=== PATIENT | female | born 1940 | race Caucasian/White ===

== ENCOUNTER 2018-02-18 07:30 | Emergency (ER) | payer MEDICARE ==
[~2018-02-18] VITALS: Ht 170.2 cm; Wt 79.4 kg
[~2018-02-18 07:30] MED LIST: ALBU90OI6 INH; ASCO500 PO; AZIT250 PO; CEFP200 PO; CELE200 PO; CHLO25B PO; CITA20 PO; CYAN500 PO; FERSU220EL PO; IBUP600 PO; ILEVRO1.7 ML OP; LISI5 PO; LOVA40; MAGOXI400 PO; Mobic15 MG PO; TIOT18 INH
[2018-02-18] MEDS ORDERED: Zofran Odt4 MG SL (08:05)
[2018-02-18] MEDS ORDERED: Norco 5-325 Ta1 EACH PO (08:05)
[2018-02-18] MEDS ORDERED: Prednisone20 MG PO (08:05)
[2018-02-18] MEDS ORDERED: Klor-Con M1010 MEQ (08:07)
[2018-02-18] MEDS ORDERED: TRAM50 ×2 (08:07→08:11)
[2018-02-18] MEDS ORDERED: Prednisolone Ace5 ML (08:08)
[2018-02-18] MEDS ORDERED: BUME2 PO (08:08)
[2018-02-18] MEDS ORDERED: CITA20 PO (08:08)
[2018-02-18] MEDS ORDERED: FERSU90EL PO (08:09)
[2018-02-18] MEDS ORDERED: LISI5 PO (08:10)
[2018-02-18] MEDS ORDERED: POTCHL10ER PO (08:10)
[2018-02-18] MEDS ORDERED: TIOT18 (08:11)
[2018-02-18] MEDS ORDERED: LOVA40 PO (08:11)
== END 2018-02-18 08:54 | disposition home or self-care (01) ==
LOC: ER 07:30
DX: M19.042 Primary osteoarthritis, left hand (principal); M19.041 Primary osteoarthritis, right hand; M54.5 Low back pain; Z88.8 Allergy status to other drugs, medicaments and biological substances; J44.9 Chronic obstructive pulmonary disease, unspecified; Z87.891 Personal history of nicotine dependence
CPT/HCPCS: 81000; 96372; 99282; J1100; J2550; J3010

== ENCOUNTER 2021-01-19 06:06 | Day surgery (SDC) | payer MEDICARE ==
[~2021-01-19] VITALS: Ht 172.7 cm; Wt 85.8 kg
[~2021-01-19 06:06] MED LIST changes: +ANORO ELLIPTA1 EACH INH; +BUME2 PO; +FERSU300 PO; +HYDROCODONE-AC1 EA13 PO; +Klor-Con M1010 MEQ; +LISI20 PO; +LOVA40 PO; +MAGCHL64ER PO; +METO25 PO; +MULVITA PO; +Norco 5-325 Ta1 EACH PO; +POTCHL10ER PO; +Prednisolone Ace5 ML; +Prednisone20 MG PO; +SLOW RELEASE I250 MG PO; +Spironolactone25 MG PO; +TRAM50; +TRAM50 PO; +Zofran Odt4 MG SL
--- NOTE | 2021-01-19 07:01 | NUR ---
Ambulatory in Day Surgery. History, Chart, Medications and Allergies reviewed before start of procedure. Patient confirms NPO status and agrees with scheduled surgery. Patient States Post-Procedure ride home has been arranged. UP TO BATHROOM AT IS TIME ADMISSION COMPLETE
--- NOTE | 2021-01-19 07:15 | NUR ---
DUONEB TREATMENT DONE PER ORDERS OF DR FRANCO
--- NOTE | 2021-01-19 10:07 | NUR ---
0955 ASSUMED CARE FROM Saulo VEGA RN. PT MEDICATED FOR SORE THROAT/ABD PAIN WITH NORCO 5/325 1 TAB, TOLERATING PO INTAKE. CONTINUE TO MONITOR AND TX PRN.
--- NOTE | 2021-01-19 10:47 | NUR ---
Patient up to Ambulate independently. Gait steady. Discharge instructions reviewed with patient. Patient verbalizes understanding. Copy given to patient to take home. Patient States Post-Procedure ride home has been arranged. Discharged via wheelchair to private car for ride home.
== END 2021-01-19 11:21 | disposition home or self-care (01) ==
LOC: ORSCMMR 06:06 → ORD 07:30 → ORSCMMR 11:21
PROVIDERS: Surgery
PROC: 0WUF0JZ Supplement Abdominal Wall with Synthetic Substitute, Open Approach (ICD-10-PCS; principal; 2021-01-19 07:30)
DX: K42.9 Umbilical hernia without obstruction or gangrene (principal); J44.9 Chronic obstructive pulmonary disease, unspecified; G47.33 Obstructive sleep apnea (adult) (pediatric); I12.9 Hypertensive chronic kidney disease with stage 1 through stage 4 chronic kidney disease, or unspecified chronic kidney disease; N18.30 Chronic kidney disease, stage 3 unspecified; E78.5 Hyperlipidemia, unspecified; F41.8 Other specified anxiety disorders; G25.81 Restless legs syndrome; Z79.899 Other long term (current) drug therapy; Z87.891 Personal history of nicotine dependence
CPT/HCPCS: A9270; C1781; J0690; J1100; J2370; J2405; J2704; J3010; J7120

== ENCOUNTER 2023-02-26 07:51 | Emergency (ER) | payer MEDICARE ==
[~2023-02-26] VITALS: Ht 170.2 cm; Wt 79.4 kg
[2023-02-26 08:32] LABS: BASOPHILS ABSOLUTE AUTO 0.04 K/mm3 (0.00-0.23); BASOPHILS PERCENT AUTO 1 % (0-2); EOSINOPHILS ABSOLUTE AUTO 0.03 K/mm3 (0.00-0.68); EOSINOPHILS PERCENT AUTO 0 % (0-6); Hematocrit 44.4 % (33.0-51.0); Hemoglobin 14.8 g/dL (11.5-16.0); IMMATURE GRAN ABSOLUTE AUTO 0.02 K/mm3 (0.00-0.10); IMMATURE GRAN PERCENT AUTO 0 % (0-1); LYMPHOCYTES ABSOLUTE AUTO 1.22 K/mm3 (0.84-5.20); LYMPHOCYTES PERCENT AUTO 18 % (21-46); MONOCYTES ABSOLUTE AUTO 0.56 K/mm3 (0.16-1.47); MONOCYTES PERCENT AUTO 8 % (4-13); Mean Corpuscular HGB 29.5 pg (26.0-34.0); Mean Corpuscular HGB Conc 33.3 g/dL (31.5-36.5); Mean Corpuscular Volume 88 fL (80-100); NEUTROPHILS ABSOLUTE AUTO 4.88 K/mm3 (1.96-9.15); NEUTROPHILS PERCENT AUTO 72 % (41-73); Platelet Count 258 K/mm3 (150-400); RDW Coefficient Variation 12.9 % (11.7-14.2); RDW Standard Deviation 41.5 fL (35.1-46.3); Red Blood Cell Count 5.02 M/mm3 (3.80-5.20); White Blood Cell Count 6.75 K/mm3 (4.00-11.30)
[2023-02-26] MEDS ORDERED: KLOR-CON M1010 MEQ PO (08:33)
[2023-02-26] MEDS ORDERED: INCRUSE ELPT 62.5MCG INH (08:34)
[2023-02-26 08:52] LABS: Source, Urine Clean Catch
[2023-02-26 09:00] LABS: Albumin, Blood 4.2 g/dL (3.4-5.0); Albumin/Globulin Ratio 1.4 (0.8-1.8); Bilirubin, Total 0.5 mg/dL (0.1-1.0); Bun/Creatinine Ratio 22.6 (12.0-20.0); Calcium, Blood 9.6 mg/dL (8.5-10.1); Creatinine, Blood 1.06 mg/dL (0.40-1.00); Total Protein, Blood 7.2 g/dL (6.4-8.2)
[2023-02-26 09:06] LABS: Appearance, Urine Clear (Clear); Bilirubin, Urine Neg (Neg); Blood, Urine Neg (Neg); Color, Urine Yellow (P-Yellow); Glucose Qualitative, Urine Neg (Neg); Ketones, Urine Neg (Neg); Leukocyte Esterase, Urine Neg (Neg); Nitrite, Urine Neg (Neg); Protein, Urine 2+ (Neg); Urobilinogen, Urine NORM (Normal)
[2023-02-26 09:17] LABS: Bacteria Rare /hpf; Hyaline Casts 0-2 /lpf (0-2); Red Blood Cells, Urine 0-2 /hpf (0-2); Squamous Epithelial Cells Rare /hpf (Few)
[2023-02-26] MEDS ORDERED: MECL25 PO (13:00)
[2023-02-26 13:15] VITALS: BP 170/92
== END 2023-02-26 13:19 | disposition home or self-care (01) ==
LOC: ER 07:51
PROVIDERS: Physician Assistant
DX: R42 Dizziness and giddiness (principal); J43.9 Emphysema, unspecified; I12.9 Hypertensive chronic kidney disease with stage 1 through stage 4 chronic kidney disease, or unspecified chronic kidney disease; N18.30 Chronic kidney disease, stage 3 unspecified; G47.33 Obstructive sleep apnea (adult) (pediatric); E78.5 Hyperlipidemia, unspecified; Z88.8 Allergy status to other drugs, medicaments and biological substances; Z79.899 Other long term (current) drug therapy; Z99.81 Dependence on supplemental oxygen
CPT/HCPCS: 70553; 80053; 81001; 85025; 93005; 93010; 96360; 96361; 99284-25; A9270; A9579; J7030

== ENCOUNTER 2025-01-05 06:27 | Observation (INO) | payer MEDICARE ==
[~2025-01-05] VITALS: Ht 170.2 cm; Wt 77.4 kg
[~2025-01-05 06:27] MED LIST changes: +ANORO ELLIPTA1 EAC1 INH; +KLOR-CON M1010 MEQ PO; +MECL25 PO
[2025-01-05] MEDS ORDERED: XARELTO20 MG PO (07:23)
[2025-01-05] MEDS ORDERED: OXYB5 PO (07:23)
[2025-01-05 07:41] LABS: BASOPHILS ABSOLUTE AUTO 0.04 K/mm3 (0.00-0.23); BASOPHILS PERCENT AUTO 1 % (0-2); EOSINOPHILS ABSOLUTE AUTO 0.12 K/mm3 (0.00-0.68); EOSINOPHILS PERCENT AUTO 2 % (0-6); Hematocrit 33.3 % (33.0-51.0); Hemoglobin 11.0 g/dL (11.5-16.0); IMMATURE GRAN ABSOLUTE AUTO 0.03 K/mm3 (0.00-0.10); IMMATURE GRAN PERCENT AUTO 0 % (0-1); LYMPHOCYTES ABSOLUTE AUTO 0.91 K/mm3 (0.84-5.20); LYMPHOCYTES PERCENT AUTO 13 % (21-46); MONOCYTES ABSOLUTE AUTO 0.65 K/mm3 (0.16-1.47); MONOCYTES PERCENT AUTO 9 % (4-13); Mean Corpuscular HGB Conc 33.0 g/dL (31.5-36.5); Mean Corpuscular Volume 91 fL (80-100); NEUTROPHILS ABSOLUTE AUTO 5.47 K/mm3 (1.96-9.15); NEUTROPHILS PERCENT AUTO 76 % (41-73); NRBC ABSOLUTE 0.00 K/mm3 (0.00-0.02); NRBC Auto 0.0 /100 WBC (0.0-0.2); Platelet Count 285 K/mm3 (150-400); RDW Coefficient Variation 13.9 % (11.7-14.2); RDW Standard Deviation 46.0 fL (35.1-46.3)
[2025-01-05 08:06] LABS: Alanine Aminotransfer (ALT/SGP 19.0 U/L (12-78); Albumin, Blood 3.7 g/dL (3.4-5.0); Albumin/Globulin Ratio 1.4 (0.8-1.8); Anion Gap 9.0 mmol/L (3-11); Aspartate Aminotrans (AST/SGOT 15.0 U/L (12-37); Bilirubin, Total 0.7 mg/dL (0.1-1.0); Blood Urea Nitrogen 40.0 mg/dL (8-24); CO2, Blood 24.0 mmol/L (21-32); Calcium, Blood 8.8 mg/dL (8.5-10.1); Chloride, Blood 111.0 mmol/L (98-108); Creatinine, Blood 1.02 mg/dL (0.40-1.00); Globulin, Blood 2.6 g/dL (2.2-4.0); Glucose, Blood 105.0 mg/dL (70-99); Potassium, Blood 4.7 mmol/L (3.5-5.5); Sodium, Blood 139.0 mmol/L (136-145); Total Protein, Blood 6.3 g/dL (6.4-8.2)
[2025-01-05 14:07] VITALS: BP 160/72
[2025-01-05 14:50] LABS: Hematocrit 33.2 % (33.0-51.0); Hemoglobin 10.8 g/dL (11.5-16.0)
[2025-01-05 15:00] VITALS: BP 174/86
[2025-01-05] MEDS ORDERED: HYDROcodone 5-APAP 325 TAB PO PRN (15:20)
[2025-01-05] MEDS ORDERED: HydrALAZINE HCl 20 MG / ML 1ML Vial IV PRN (15:20)
[2025-01-05] MEDS ORDERED: Tiotropium Bromide 2.5 MCG/ACT MIST INHAL (10 ACT/4 GM) INH SCH (15:25)
[2025-01-05 16:10] VITALS: BP 164/72
--- NOTE | 2025-01-05 16:18 | NUR ---
ADMIT TO PCU: PATIENT ADMIT TO PCU AT 1346. ABLE TO STAND AND PIVOT TO PCU BED. RIGHT LEG WITH EXTENSIVE BRUISING FROM PREVIOUS GLF AT HOME. SEE CHART PHOTOS TAKEN ON ADMISSION ASSESSMENT. DENIES PAIN AT REST. COMPLAINS OF SOME SORENESS TO RIGHT LEG FROM GLF WITH ACTIVIY. ALERT AND ORIENTED. PERRLA, GLASSES AT HOME. MEDICAL STATUS NO TELE. ELEVATED BLOOD PRESSURE. HOME MED REC COMPLETED AND DR. DOSS UPDATED ON VITALS. IV HYDRALAZINE GIVEN PER EMAR. SEE CHARTED VITALS. EDEMA TO RIGHT LEG. PPP. IV SALINE LOCKED. BOWEL TONES PRESENT. DENIES ABDOMINAL PAIN/NAUSEA. TOLERATING CLEAR LIQUIDS AT THIS TIME. UP TO BSC WITH 200ML URINE OUTPUT. SMALL MAROON SMEAR IN ATTENDS. [address]. DOSS. GI CONSULT IN PLACE. ON ROOM AIR AT THIS TIME SATING ABOVE 95%. DENIES SOB AT REST. MINIMAL SHORTNESS OF BREATH WHEN UP TO COMMODE. HOME CPAP AT BEDSIDE. PATIENT REPORTS WEARING HOME CPAP WITH 2L BLEED IN OF O2 DURING NOC. ORIENTED TO ROOM/UNIT. BED ALARM IN PLACE FOR SAFETY. CALL LIGHT IN REACH. DENIES NEEDS AT THIS TIME.
[2025-01-05] MEDS ORDERED: Pantoprazole Sodium 40 MG Injection IV SCH (16:30)
[2025-01-05 16:56] VITALS: BP 175/78
[2025-01-05 17:27] VITALS: BP 161/72
--- NOTE | 2025-01-05 17:37 | NUR ---
DR. DOSS TO BEDSIDE. BLOOD CONSENT DONE AND PLACED IN CHART. DR. DOSS AWARE OF CURRENT BLOOD PRESSURE. NO NEW ORDERS. PATIENT COMPLAINING OF 5/10 ABDOMINAL PAIN THAT IS DESCRIBED "FULLNESS, CRAMPING AND GASSY". UP TO BSC WITH CLEAR-YELLOW URINE OUTPUT AND SMALL MAROON SMEARS IN ATTENDS. CLEAR LIQUID DIET, SIPPING ON CHICKEN BROTH. DENIES NEED FOR PAIN MEDICATIONS. DR. PEARCE UPDATED ON NEW ABDOMINAL PAIN. NO NEW ORDERS FOR THIS RN. CALL LIGHT IN REACH.
[2025-01-05 20:19] VITALS: BP 154/78
[2025-01-05 22:16] LABS: Hematocrit 33.4 % (33.0-51.0); Hemoglobin 11.1 g/dL (11.5-16.0)
[2025-01-06 03:29] LABS: BASOPHILS ABSOLUTE AUTO 0.03 K/mm3 (0.00-0.23); BASOPHILS PERCENT AUTO 0 % (0-2); EOSINOPHILS ABSOLUTE AUTO 0.10 K/mm3 (0.00-0.68); EOSINOPHILS PERCENT AUTO 1 % (0-6); Hematocrit 33.6 % (33.0-51.0); Hemoglobin 10.8 g/dL (11.5-16.0); IMMATURE GRAN ABSOLUTE AUTO 0.03 K/mm3 (0.00-0.10); IMMATURE GRAN PERCENT AUTO 0 % (0-1); LYMPHOCYTES ABSOLUTE AUTO 1.14 K/mm3 (0.84-5.20); LYMPHOCYTES PERCENT AUTO 15 % (21-46); MONOCYTES ABSOLUTE AUTO 0.65 K/mm3 (0.16-1.47); MONOCYTES PERCENT AUTO 9 % (4-13); Mean Corpuscular HGB Conc 32.1 g/dL (31.5-36.5); Mean Corpuscular Volume 92 fL (80-100); NEUTROPHILS ABSOLUTE AUTO 5.47 K/mm3 (1.96-9.15); NEUTROPHILS PERCENT AUTO 74 % (41-73); NRBC ABSOLUTE 0.00 K/mm3 (0.00-0.02); NRBC Auto 0.0 /100 WBC (0.0-0.2); Platelet Count 275 K/mm3 (150-400); RDW Coefficient Variation 14.2 % (11.7-14.2); RDW Standard Deviation 47.6 fL (35.1-46.3)
[2025-01-06 03:45] LABS: Anion Gap 7.0 mmol/L (3-11); Blood Urea Nitrogen 31.0 mg/dL (8-24); CO2, Blood 25.0 mmol/L (21-32); Calcium, Blood 9.1 mg/dL (8.5-10.1); Chloride, Blood 111.0 mmol/L (98-108); Creatinine, Blood 0.97 mg/dL (0.40-1.00); Glucose, Blood 103.0 mg/dL (70-99); Potassium, Blood 4.2 mmol/L (3.5-5.5); Sodium, Blood 139.0 mmol/L (136-145)
[2025-01-06 04:21] VITALS: BP 177/84
--- NOTE | 2025-01-06 07:31 | NUR ---
PT STABLE THROUGHOUT THE SHIFT EXCEPT FOR ONE EPISODE OF HTN, WHICH IMPROVED WITH IV HYDRALAZINE. PT AOX4, SBA TO BSC. PT ABLE TO USE CALL LIGHT AND MAKE NEEDS KNOWN. NO EPISODES OF MELENA OR BLOODY STOOLS. PT OOB TO BSC FREQUENTLY FOR URINATION. PT URINATING 100ML-200ML AT A TIME, NO C/O OF DYSURIA. URINE APPEARS CLEAR AND W/O ODOR. PT TOLERATED CLEAR LIQUIDS WELL. PT WAS MEDICATED FOR B/L LEG PAIN X1 WITH GOOD RESULTS, SEE MAR.
[2025-01-06 07:45] VITALS: BP 141/58
[2025-01-06] MEDS ORDERED: Enoxaparin 80 MG/0.8 ML SYR SC SCH (09:00)
[2025-01-06] MEDS ORDERED: Multivitamins 1 Tab PO SCH (09:00)
[2025-01-06 15:41] VITALS: BP 119/63
[2025-01-06 20:36] VITALS: BP 124/82
[2025-01-06 21:05] LABS: Hematocrit 33.8 % (33.0-51.0); Hemoglobin 10.9 g/dL (11.5-16.0)
--- NOTE | 2025-01-06 21:27 | NUR ---
PT HAD DARK RED/BLACK, FORMED, HARD STOOL. PT H&H STABLE AT THIS TIME. PT WAS TO RESTART LOVENOX. CALL PLACED TO DR. TRAN, ORDERS TO HOLD LOVENOX AND REPEAT H&H.
[2025-01-07 00:09] VITALS: BP 126/52
--- NOTE | 2025-01-07 03:51 | NUR ---
PT WOKE VERY CONFUSED AND PARANOID. PT REFUSING CARES/TESTS, STRIKING OUT AT STAFF. PT AOX2, ORIENTED TO SELF AND THAT I AM A NURSE BUT UNABLE TO PLACE THAT SHE IS IN THE HOSPITAL, CANNOT REMEMBER WHY SHE IS IN THE HOSPITAL, OR THE DATE. CHANGE FROM PREVIOUS ASSESSMENT OF AOX4 AND VERY PLEASANT AND COOPERATIVE. CALL PLACED TO DR. TRAN REGARDING CONCERNS. WITH PT AGITATION CURRENTLY DR. TRAN RECOMMENDS CONTINUED MONITORING AND ENCOURAGE CALM ENVIRONMENT WITH CLEAR DAY/NIGHT CYCLE. IF AGITATION WORSENS, DR TRAN REQUESTS TO BE CONTACTED AGAIN FOR NEW ORDERS. PT HAS HAD GOOD DAY/NIGHT CYCLES PREVIOUS. PT WAS ON CPAP WITH 2L O2 BLEEDING D/T SOMMER WITH SAT AT 89% ON ROOM AIR. WITH CPAP SAT IMPROVED TO 94-96%.
--- NOTE | 2025-01-07 03:59 | NUR ---
PT HAS NO APPARENT FOCAL DEFICITS, NO FACIAL DROOP AND APPEARS TO MOVE ALL EXTREMITIES WELL. PT REFUSING VITAL SIGNS.
[2025-01-07 07:07] VITALS: BP 141/64
[2025-01-07 07:31] LABS: Hematocrit 35.6 % (33.0-51.0); Hemoglobin 11.6 g/dL (11.5-16.0)
[2025-01-07 12:39] VITALS: BP 102/56
== END 2025-01-07 13:00 | disposition home or self-care (01) ==
LOC: ER 06:27 → MEDS 06:28 → PCU 06:28
PROVIDERS: Emergency Medicine; Family Medicine; ADMIT Family Medicine
DX: K57.31 Diverticulosis of large intestine without perforation or abscess with bleeding (principal); D62 Acute posthemorrhagic anemia; I12.9 Hypertensive chronic kidney disease with stage 1 through stage 4 chronic kidney disease, or unspecified chronic kidney disease; N18.30 Chronic kidney disease, stage 3 unspecified; S80.11XA Contusion of right lower leg, initial encounter; E78.5 Hyperlipidemia, unspecified; G47.33 Obstructive sleep apnea (adult) (pediatric); K21.9 Gastro-esophageal reflux disease without esophagitis; J43.9 Emphysema, unspecified; K40.90 Unilateral inguinal hernia, without obstruction or gangrene, not specified as recurrent; I27.20 Pulmonary hypertension, unspecified; G25.81 Restless legs syndrome; K44.9 Diaphragmatic hernia without obstruction or gangrene; Z66 Do not resuscitate; Z86.718 Personal history of other venous thrombosis and embolism; Z87.891 Personal history of nicotine dependence; Z79.01 Long term (current) use of anticoagulants; Z79.899 Other long term (current) drug therapy; Z88.8 Allergy status to other drugs, medicaments and biological substances; Z96.642 Presence of left artificial hip joint; Z99.81 Dependence on supplemental oxygen; W19.XXXA Unspecified fall, initial encounter
CPT/HCPCS: 36415; 74177; 80048; 80053; 85014; 85018; 85025; 86850; 86900; 86901; 93306; 94640; 94664; 94762; 96372; 96374; 96375; 96376; 99284-25; A9270; G0378; J0360; J1650; J2470; Q9967

== ENCOUNTER 2025-04-04 23:25 | Inpatient (IN) | payer MEDICARE ==
[~2025-04-04] VITALS: Ht 160 cm; Wt 79.1 kg
[~2025-04-04 23:25] MED LIST changes: +Etomidate 2MG / ML 10ML Vial IV ONE; -MAGCHL64ER PO; +Magnesium250 MG PO; +Midazolam HCl 1MG / ML 2ML Vial IV ONE; +OXYB5 PO; +SuccINYLCHOLINE Chloride 100 MG/5 ML 5MLSYR IV ONE; +XARELTO20 MG PO
[2025-04-04 23:48] LABS: pH Blood Venous 7.16 (7.34-7.37)
[2025-04-04 23:52] LABS: BASOPHILS ABSOLUTE AUTO 0.07 K/mm3 (0.00-0.23); BASOPHILS PERCENT AUTO 0 % (0-2); EOSINOPHILS ABSOLUTE AUTO 0.07 K/mm3 (0.00-0.68); EOSINOPHILS PERCENT AUTO 0 % (0-6); Hematocrit 44.0 % (33.0-51.0); Hemoglobin 13.8 g/dL (11.5-16.0); Mean Corpuscular HGB Conc 31.4 g/dL (31.5-36.5); Mean Corpuscular Volume 93 fL (80-100); NRBC ABSOLUTE 0.00 K/mm3 (0.00-0.02); NRBC Auto 0.0 /100 WBC (0.0-0.2); Platelet Count 323 K/mm3 (150-400); RDW Coefficient Variation 13.1 % (11.7-14.2); RDW Standard Deviation 45.1 fL (35.1-46.3)
[2025-04-04 23:55] LABS: IMMATURE GRAN ABSOLUTE AUTO 0.15 K/mm3 (0.00-0.10); IMMATURE GRAN PERCENT AUTO 1 % (0-1); LYMPHOCYTES ABSOLUTE AUTO 6.08 K/mm3 (0.84-5.20); LYMPHOCYTES PERCENT AUTO 32 % (21-46); MONOCYTES ABSOLUTE AUTO 1.44 K/mm3 (0.16-1.47); MONOCYTES PERCENT AUTO 8 % (4-13); NEUTROPHILS ABSOLUTE AUTO 11.23 K/mm3 (1.96-9.15); NEUTROPHILS PERCENT AUTO 59 % (41-73)
[2025-04-04 23:55] LABS: Source, Urine Clean Catch
[2025-04-04] MEDS ORDERED: NS 1,000 ML IV ONE (23:56)
[2025-04-04 23:59] LABS: Bilirubin, Urine Neg (Neg); Glucose Qualitative, Urine Neg (Neg); Ketones, Urine Neg (Neg); Leukocyte Esterase, Urine Neg (Neg); Protein, Urine 2+ (Neg); Specific Gravity, Urine 1.025 (1.003-1.022); Urobilinogen, Urine NORM (Normal)
[2025-04-05] VITALS (24 sets, daily range): BP systolic 99–192; BP diastolic 60–161
[2025-04-05 00:01] LABS: Color, Urine Yellow (P-Yellow)
[2025-04-05 00:05] LABS: Red Blood Cells, Urine Not Seen /hpf (0-2); White Blood Cells, Urine Not Seen /hpf (0-5)
[2025-04-05 00:07] LABS: Alanine Aminotransfer (ALT/SGP 61.0 U/L (12-78); Albumin, Blood 4.3 g/dL (3.4-5.0); Albumin/Globulin Ratio 1.4 (0.8-1.8); Anion Gap 9.0 mmol/L (3-11); Aspartate Aminotrans (AST/SGOT 41.0 U/L (12-37); Bilirubin, Total 0.3 mg/dL (0.1-1.0); Blood Urea Nitrogen 56.0 mg/dL (8-24); CO2, Blood 25.0 mmol/L (21-32); Calcium, Blood 9.7 mg/dL (8.5-10.1); Chloride, Blood 107.0 mmol/L (98-108); Creatinine, Blood 1.27 mg/dL (0.40-1.00); Globulin, Blood 3.1 g/dL (2.2-4.0); Glucose, Blood 263.0 mg/dL (70-99); Magnesium, Blood 4.2 mg/dL (1.6-2.4); Potassium, Blood 4.6 mmol/L (3.5-5.5); Sodium, Blood 136.0 mmol/L (136-145); Total Protein, Blood 7.4 g/dL (6.4-8.2)
[2025-04-05] MEDS ORDERED: CefTRIAXone Sodium 1,000 MG in NS 100 ML IV ONE (00:35)
[2025-04-05] MEDS ORDERED: Midazolam HCL 50 MG in NS 40 ML IV PRN (00:50)
[2025-04-05 00:58] LABS: CORONAVIRUS COVID-19 AG Negative (NEGATIVE)
[2025-04-05] MEDS ORDERED: Midazolam HCL 1 MG/ML 5MLVIAL IV ONE (01:15)
[2025-04-05] MEDS ORDERED: NS 1,000 ML IV ONE (01:26)
[2025-04-05] MEDS ORDERED: Midazolam HCl 1MG / ML 2ML Vial IV PRN ×2 (01:45→11:15)
[2025-04-05] MEDS ORDERED: Albuterol 2.5 MG/3 ML VIAL INH PRN (01:45)
[2025-04-05] MEDS ORDERED: FLU VACC TS2025(65UP)/MF59C/PF 45 MCG/0.5 ML SYRINGE IM SCH (01:45)
[2025-04-05] MEDS ORDERED: FentaNYL Citrate 50 MCG/ML 2 ML Injection IV PRN ×2 (01:50→10:05)
[2025-04-05 03:01] LABS: pH Blood Venous 7.28 (7.34-7.37)
[2025-04-05 03:16] LABS: BASOPHILS ABSOLUTE AUTO 0.02 K/mm3 (0.00-0.23); BASOPHILS PERCENT AUTO 0 % (0-2); EOSINOPHILS ABSOLUTE AUTO 0.00 K/mm3 (0.00-0.68); EOSINOPHILS PERCENT AUTO 0 % (0-6); Hematocrit 42.7 % (33.0-51.0); Hemoglobin 13.1 g/dL (11.5-16.0); IMMATURE GRAN ABSOLUTE AUTO 0.09 K/mm3 (0.00-0.10); IMMATURE GRAN PERCENT AUTO 1 % (0-1); LYMPHOCYTES ABSOLUTE AUTO 0.56 K/mm3 (0.84-5.20); LYMPHOCYTES PERCENT AUTO 4 % (21-46); MONOCYTES ABSOLUTE AUTO 0.65 K/mm3 (0.16-1.47); MONOCYTES PERCENT AUTO 5 % (4-13); Mean Corpuscular HGB Conc 30.7 g/dL (31.5-36.5); Mean Corpuscular Volume 96 fL (80-100); NEUTROPHILS ABSOLUTE AUTO 12.11 K/mm3 (1.96-9.15); NEUTROPHILS PERCENT AUTO 90 % (41-73); NRBC ABSOLUTE 0.00 K/mm3 (0.00-0.02); NRBC Auto 0.0 /100 WBC (0.0-0.2); Platelet Count 231 K/mm3 (150-400); RDW Coefficient Variation 13.2 % (11.7-14.2); RDW Standard Deviation 47.6 fL (35.1-46.3)
[2025-04-05 03:37] LABS: Alanine Aminotransfer (ALT/SGP 53.0 U/L (12-78); Albumin, Blood 3.5 g/dL (3.4-5.0); Albumin/Globulin Ratio 1.3 (0.8-1.8); Anion Gap 9.0 mmol/L (3-11); Aspartate Aminotrans (AST/SGOT 36.0 U/L (12-37); Bilirubin, Total 0.3 mg/dL (0.1-1.0); Blood Urea Nitrogen 55.0 mg/dL (8-24); CO2, Blood 22.0 mmol/L (21-32); Calcium, Blood 8.5 mg/dL (8.5-10.1); Chloride, Blood 113.0 mmol/L (98-108); Creatinine, Blood 1.26 mg/dL (0.40-1.00); Globulin, Blood 2.6 g/dL (2.2-4.0); Glucose, Blood 198.0 mg/dL (70-99); Magnesium, Blood 3.3 mg/dL (1.6-2.4); Potassium, Blood 4.8 mmol/L (3.5-5.5); Sodium, Blood 139.0 mmol/L (136-145); Total Protein, Blood 6.1 g/dL (6.4-8.2)
[2025-04-05] MEDS ORDERED: NS 250 ML IV ONE (03:39)
--- NOTE | 2025-04-05 05:31 | NUR ---
ASSUME CARE PT FROM ED TO ICU-07 @. PT ARRIVES TO ICU AFTER EMERGENT INTUBATION DUE TO RESPIRATORY DISTRESS. PT IS SEDATED WITH FENTANYL AND VERSED, DELANEY FULL NEURO FUNCTION AT THIS TI8ME DUE TO SEDATION, PUPILS PINPOINT AND NON REACTIVE TO LIGHT, MOVING ALL EXTREMETIES NOT PURPOSEFUL, RESPONDS TO PAINFUL STIMULI ONLY, AFEBRILE. VENTILATED AC/VC 18/05/65% FIO2 WITH SPO2 >93%, LUNG SOUNDS CLEAR BILAT IN UPPER LOBES AND DIMINSHED IN BILAT LOWER LOBES, CHEST TUBE IN THE RIGHT LATERAL, DRESSING WITH PETROLEUM GAUZE, GAUZE, ADND TEGADERM. CHEST TUBE WATER SEALED. BP STABLE IN THE 120'S/60'S AFTER 1L NS, HR IN THE 70'S NSR. BOWEL TONES PRESENT, NO ABDOMINAL DISTENTION. FOELY CATHETER IN PLACE, PATENT, AND DRAINING TO GRAVITY YELLOW URINE. SEE ADMISSION ASSESSMENT FOR DETAILED ASSESSMENT
[2025-04-05] MEDS ORDERED: Pantoprazole Sodium 40 MG Injection IV SCH (06:00)
--- NOTE | 2025-04-05 07:10 | NUR ---
SPOKE TO DR CRISTINA REGARDING OG TUBE. DUE TO FAILED ATTEMPTS TO PLACE OG TUBE, PROVIDER STATES NO OG TUBE AT THIS TIME.
[2025-04-05] MEDS ORDERED: Lactobacil 2-S.Thermo-Bifido 1 1 Cap PO SCH (09:00)
[2025-04-05] MEDS ORDERED: Enoxaparin 40 MG/0.4 ML SYR SC SCH (09:00)
[2025-04-05 09:16] LABS: pH Blood Arterial 7.31 (7.35-7.45)
[2025-04-05] MEDS ORDERED: Cetylpyridinium Chloride 1 EA MISC MT SCH (10:00)
[2025-04-05] MEDS ORDERED: Midazolam HCl 5 MG / ML 5ML Vial IV PRN (10:05)
[2025-04-05] MEDS ORDERED: NS 1,000 ML IV SCH (11:00)
[2025-04-05] MEDS ORDERED: Hydrogen Peroxide 1.5 % Solution MT SCH (12:00)
[2025-04-05] MEDS ORDERED: HydrALAZINE HCl 20 MG / ML 1ML Vial IV PRN (16:40)
[2025-04-05] MEDS ORDERED: CefTRIAXone Sodium 1,000 MG in NS 100 ML IV SCH (21:00)
[2025-04-05] MEDS ORDERED: Enoxaparin 80 MG/0.8 ML SYR SC SCH (21:00)
[2025-04-06] VITALS (41 sets, daily range): BP systolic 76–189; BP diastolic 52–147
[2025-04-06 03:59] LABS: BASOPHILS ABSOLUTE AUTO 0.01 K/mm3 (0.00-0.23); BASOPHILS PERCENT AUTO 0 % (0-2); EOSINOPHILS ABSOLUTE AUTO 0.00 K/mm3 (0.00-0.68); EOSINOPHILS PERCENT AUTO 0 % (0-6); Hematocrit 39.0 % (33.0-51.0); Hemoglobin 12.8 g/dL (11.5-16.0); IMMATURE GRAN ABSOLUTE AUTO 0.04 K/mm3 (0.00-0.10); IMMATURE GRAN PERCENT AUTO 0 % (0-1); LYMPHOCYTES ABSOLUTE AUTO 1.34 K/mm3 (0.84-5.20); LYMPHOCYTES PERCENT AUTO 11 % (21-46); MONOCYTES ABSOLUTE AUTO 0.96 K/mm3 (0.16-1.47); MONOCYTES PERCENT AUTO 8 % (4-13); Mean Corpuscular HGB Conc 32.8 g/dL (31.5-36.5); Mean Corpuscular Volume 91 fL (80-100); NEUTROPHILS ABSOLUTE AUTO 9.58 K/mm3 (1.96-9.15); NEUTROPHILS PERCENT AUTO 80 % (41-73); NRBC ABSOLUTE 0.00 K/mm3 (0.00-0.02); NRBC Auto 0.0 /100 WBC (0.0-0.2); Platelet Count 210 K/mm3 (150-400); RDW Coefficient Variation 13.2 % (11.7-14.2); RDW Standard Deviation 43.6 fL (35.1-46.3)
[2025-04-06 04:15] LABS: Anion Gap 6.0 mmol/L (3-11); Blood Urea Nitrogen 35.0 mg/dL (8-24); CO2, Blood 25.0 mmol/L (21-32); Calcium, Blood 8.9 mg/dL (8.5-10.1); Chloride, Blood 112.0 mmol/L (98-108); Creatinine, Blood 0.93 mg/dL (0.40-1.00); Glucose, Blood 108.0 mg/dL (70-99); Potassium, Blood 4.3 mmol/L (3.5-5.5); Sodium, Blood 139.0 mmol/L (136-145)
--- NOTE | 2025-04-06 05:53 | NUR ---
SHIFT SUMMARY: NO ACUTE CHANGES T/O THE NIGHT. PT ALERT, ORIENTED TO SELF, SITUATION, AND PLACE. PT CAN STATE YEAR, DISORIENTED TO MONTH/DAY. ABLE TO MAKE NEEDS KNOWN AND FOLLOWS COMMANDS. PT SBP STABLE, MAP >65. PT REQUIRED ONE DOSE OF HER PRN HYDRALAZINE, PER EMAR, DUE TO SBP>180. ORDERED DOSE EFFECTIVE IN LOWERING SBP. PT ENDORSES PAIN TO R LATERAL CHEST, WHERE CHEST TUBE IS LOCATED. PAIN DESCRIBED TO INCREASE W/DEEP BREATHS AND BE MINIMAL OTHERWISE. PT GIVEN HER PRN FENTANYL NEEDED. PT REMAINS ON 3L O2 VIA NC. SATS >90%. ABD SOFT, BT ACTIVE X4. PT HAS TEMP CELESTE IN PLACE, PATENT, DRAINING YELLOW URINE. PT HAS POWERGLIDE TO JAMIA. CARE CONTINUES. THIS RN TO REPORT TO ONCOMING RN.
[2025-04-06] MEDS ORDERED: Metoprolol Tartrate 5 ML IV ONE (09:07)
[2025-04-06] MEDS ORDERED: Metoprolol Tartrate 1 MG/ML 5 ML VIAL IV ONE ×2 (09:10→09:15)
--- NOTE | 2025-04-06 09:41 | NUR ---
SVT PT GOT UP TO THE CHAIR THIS MORNING. AFTER BEING IN THE CHAIR FOR ABOUT 10 MINUTES, AT 0845 PT'S HR WENT UP TO THE 140S. PT STATED SHE FELT DIZZY, SBP WAS IN THE 70S. CHEST TUBE APPEARS TO BE IN PLACE, BREATH SOUNDS EQUAL. DR. POLANCO AND CHARGE NURSE ALERTED AND CAME TO BEDSIDE. SBP UP TO THE 90S, BUT PT STILL SAID SHE DIDN'T FEEL GOOD. PT PUT BACK IN BED USING THE CHAIR SLING. EKG COMPLETED SHOWING SVT. 6MG ADENOSINE GIVEN PER DR. POLANCO'S ORDERS WITH HR SLOWING TO THE 30S, BUT THEN SPED BACK UP. DR. POLANCO THEN ORDERED 12.5MG IV METOPROLOL. HR SLOWED TO THE 120S WITH IT AND SBP LOW 100S. AN ADDITIONAL 12.5MG IV METOPROLOL ORDERED BY DR. POLANCO. PT CONVERTED TO SR WITH RATE IN THE 70S AT 0928. PT TAKES METOPROLOL AT HOME SO PO DOSE ORDERED BY DR. POLANCO. PT'S DAUGHTER WAS AT THE BEDSIDE FOR ALL OF THIS. PT'S MED LIST IS ON HER COMPUTER AT HOME AND PT'S DAUGHTER SAID SHE WILL RETRIEVE IT.
--- NOTE | 2025-04-06 09:47 | NUR ---
CHEST TUBE CLAMPED AT [address] POLANCO.
[2025-04-06 10:38] LABS: Anion Gap 9.0 mmol/L (3-11); Blood Urea Nitrogen 34.0 mg/dL (8-24); CO2, Blood 23.0 mmol/L (21-32); Calcium, Blood 8.8 mg/dL (8.5-10.1); Chloride, Blood 110.0 mmol/L (98-108); Creatinine, Blood 0.91 mg/dL (0.40-1.00); Glucose, Blood 123.0 mg/dL (70-99); Magnesium, Blood 2.1 mg/dL (1.6-2.4); Phosphorus, Blood 2.5 mg/dL (2.5-4.9); Potassium, Blood 4.2 mmol/L (3.5-5.5); Sodium, Blood 138.0 mmol/L (136-145)
--- NOTE | 2025-04-06 12:52 | NUR ---
REASSESSMENT PT HAS BEEN RESTING IN BED SINCE HER SVT EPISODE THIS MORNING AND HAS NOT HAD ANY FURTHER RUNS OF SVT. HR IS SR WITH 1ST DEGREE AVB, RATE IN THE 60 AND 70S, SBP 160S. REPEAT EKG DONE PER DR. POLANCO'S ORDERS AFTER HER TROPONIN CAME BACK ELEVATED AND HE REVIEWED IT. LUNGS ARE CLEAR WITH GOOD AIR MOVEMENT BILATERALLY. PT ATE LUNCH WITHOUT DIFFICULTY. PT HAS TRIED TO HAVE A BM USING THE BEDPAN TWICE.
[2025-04-06] MEDS ORDERED: ASPI81CH PO (13:50)
[2025-04-06] MEDS ORDERED: Norco 5-325 Ta1 EACH PO (13:51)
--- NOTE | 2025-04-06 17:21 | NUR ---
SHIFT SUMMARY PT HAS HAD NO FURTHER EPISODES OF SVT SINCE THIS MORNING. SHE REMAINS ALERT AND ORIENTED, ALTHOUGH SHE IS FORGETFUL AT TIMES. LUNGS ARE CLEAR AND EQUAL. SR WITH FIRST DEGREE AVB. PRN HYDRALAZINE GIVEN THIS AFTERNOON FOR SBP ABOVE 180. PT EATING ABOUT HALF OF HER MEALS, NO BM TODAY. CELESTE DRAINING WILLY COLORED URINE. PT'S LILLI VISITED AND HAS BEEN UPDATED.
[2025-04-07] VITALS (39 sets, daily range): BP systolic 92–187; BP diastolic 46–95
[2025-04-07] MEDS ORDERED: Ondansetron HCl 2 MG / ML 2ML Vial IV PRN (02:10)
[2025-04-07 04:06] LABS: BASOPHILS ABSOLUTE AUTO 0.01 K/mm3 (0.00-0.23); BASOPHILS PERCENT AUTO 0 % (0-2); EOSINOPHILS ABSOLUTE AUTO 0.05 K/mm3 (0.00-0.68); EOSINOPHILS PERCENT AUTO 1 % (0-6); Hematocrit 42.9 % (33.0-51.0); Hemoglobin 13.6 g/dL (11.5-16.0); IMMATURE GRAN ABSOLUTE AUTO 0.04 K/mm3 (0.00-0.10); IMMATURE GRAN PERCENT AUTO 0 % (0-1); LYMPHOCYTES ABSOLUTE AUTO 1.30 K/mm3 (0.84-5.20); LYMPHOCYTES PERCENT AUTO 12 % (21-46); MONOCYTES ABSOLUTE AUTO 0.88 K/mm3 (0.16-1.47); MONOCYTES PERCENT AUTO 8 % (4-13); Mean Corpuscular HGB Conc 31.7 g/dL (31.5-36.5); Mean Corpuscular Volume 89 fL (80-100); NEUTROPHILS ABSOLUTE AUTO 8.21 K/mm3 (1.96-9.15); NEUTROPHILS PERCENT AUTO 78 % (41-73); NRBC ABSOLUTE 0.00 K/mm3 (0.00-0.02); NRBC Auto 0.0 /100 WBC (0.0-0.2); Platelet Count 228 K/mm3 (150-400); RDW Coefficient Variation 13.3 % (11.7-14.2); RDW Standard Deviation 43.8 fL (35.1-46.3)
[2025-04-07 04:23] LABS: Anion Gap 10.0 mmol/L (3-11); Blood Urea Nitrogen 31.0 mg/dL (8-24); CO2, Blood 24.0 mmol/L (21-32); Calcium, Blood 9.1 mg/dL (8.5-10.1); Chloride, Blood 109.0 mmol/L (98-108); Creatinine, Blood 0.89 mg/dL (0.40-1.00); Glucose, Blood 111.0 mg/dL (70-99); Magnesium, Blood 2.1 mg/dL (1.6-2.4); Phosphorus, Blood 2.7 mg/dL (2.5-4.9); Potassium, Blood 4.0 mmol/L (3.5-5.5); Sodium, Blood 139.0 mmol/L (136-145)
--- NOTE | 2025-04-07 05:44 | NUR ---
SHIFT SUMMARY: PT SLEPT MOST OF THE NIGHT. REMAINS A&O X3, SLIGHT DISORIENTATION TO MONTH/DAY, ABLE TO MAKE NEEDS KNOWN AND PARTICIPATE IN CARE. AFEBRILE. DENIED PAIN. VSS. R LATERAL CHEST TUBE REMAINS CLAMPED W/SCANT OUTPUT OBSERVED IN DRAINAGE TUBE. PT REMAINS ON 3L O2 VIA NC, SATS>92%. HR SINUS. DENIED CHEST PAIN OR SOB. PT HAD AN EPISODE OF NAUSEA, NO VOMITING. ORDERS OBTAINED FOR ZOFRAN. ZOFRAN EFFECTIVE IN RELIEVING NAUSEA SXS, NO FURTHER C/O. BT ACTIVE X4. CELESTE REMAINS IN PLACE, PATENT. POWERGLIDE TO JAMIA. CARE CONTINUES. THIS RN TO REPORT TO ONCOMING RN.
--- NOTE | 2025-04-07 07:10 | NUR ---
Hardeman of care- Patient received @ 0700am @ bedside,i am assuming care for this patient.TOA done @ bedside with night RN.Patient is alert and oriented, able to communicate comfortably.Patient does have chest tube in place on right lateral site.VSS,Patient is moving all extrimities upper and lower.White board updated.Rodriguez in place,patent and draining by gravity.Powerglide in place on Left upper arm,dressing intact.Bed in lower position,environment clutter free, call loredo within reach,patient acknowleged use of call loredo.
--- NOTE | 2025-04-07 11:21 | NUR ---
Patient update- chest tube removed by Dr. Anguiano @ 1106am at bedside, patient tolerated procedure well, dressing applied at the tube site after removal by MD.Patient VSS.
--- NOTE | 2025-04-07 17:46 | NUR ---
Shift Summary- Patient GCS- 15,RASS- 0,MOVE ALL EXTREMITIES,UP ON CHAIR FOR 2.5 HOURS.Patient VSS,BP- 140/80 AND ,MAP- 99.Patient chest tube has been removed by MD during the day and patient remained on NC - 1L.Patient chest tube site has small drainage ,but dressing intact.Patient cantrell has been removed,UP x 2 since removal.Patient did have adequate urine output following cantrell removal and moderate BM today.Powerglide and SCDs in place.Bed in lowest position,call loredo within reach.Daughter has been updated during the day about plan of care.
[2025-04-08] VITALS (10 sets, daily range): BP systolic 115–197; BP diastolic 60–92
--- NOTE | 2025-04-08 06:32 | NUR ---
SHIFT SUMMARY A/OX4 T/O SHIFT, FOLLOWING COMMANDS, MAKES NEEDS KNOWN, MIN SB ASSIST TO BSC X3 DURING NIGHT, ROBBIE WELL. VSS, AFEBRILE. DENIES PAIN OR DISCOMFORT. CHEST TUBE SITE DRSG DRY/INTACT. WILL UPDATE DAY RN WITH ALL OUTSTANDING ISSUES AND PROBLEMS TO DATE.
--- NOTE | 2025-04-08 10:26 | NUR ---
SHIFT SUMMARY- PATIENT RECEIVED FROM NIGHT NURSE @ 0700,TOA @ BEDSIDE.PATIENT VSS,SLEEPING BUT EASILY AROUSABLE.PATIENT BED IS AT LOWEST POSITION,CLUTTER FREE AND CALL PEOPLES WITHIN REACH.SAFETY CHECKS DONE.PATIENT IS ON NC 1L AND SAT ABOVE 90%.
--- NOTE | 2025-04-08 10:42 | NUR ---
BRIEF SUMMARY- REPORT HAS BEEN GIVEN TO MEDICINE FLOOR RN ON TELEPHONE.PATIENT BELONGINGS PACKED AND PATIENT IS WORKING WITH PT AT THIS TIME AND WILL TRANSFER AFTER PT IS DONE.
--- NOTE | 2025-04-08 13:33 | NUR ---
Assumed care of patient from ICU at 1135. Patient was oriented to room and call light/system. All patient belongings in room with patient from ICU. Patient denies needs or concerns at this time and is comfortable. Bed in lowest position and call light within reach.
--- NOTE | 2025-04-08 17:10 | NUR ---
End of shift summary: Patient is alert and oriented x4; forgetful at times; pleasant and cooperative with care. Patient denies SOB, CP or pressure, N/V/D or pain at this time. Dressing to right chest wall/ribs frm chest tube removal is C/D/I. Patient up to BR via walker and standby assist. Patient utilizing call light appropriately; call light within reach and bed in lowest position. Will continue to monitor until next shift nurse arrives and report is given.
[2025-04-08] MEDS ORDERED: NS 250 ML IV PRN (21:15)
[2025-04-09 00:06] VITALS: BP 183/98
[2025-04-09 04:38] VITALS: BP 210/94
[2025-04-09 04:45] VITALS: BP 193/81
--- NOTE | 2025-04-09 05:14 | NUR ---
SHIFT SUMMARY PT ALERT ORIENTED X 4 WITH FORGETFULLNESS ABLE TO VERBALIZE NEEDS AND CALLS APPROPRITELY. HER BP THIS AM WAS 193/81 HYDRALAZINE WAS GIVEN. HER O2 SAT WAS 89-90% ON RA. RT CAME AND PUT HER ON O2 AT 2L VIA NC SINCE SHE REFUSED TO USE HER CPAP. REMAINS ON ROCEPHIN QDAY AND ZITHROMAX QDAY FOR PNEUMONIA. CHEST TUBE SITE LOOKS GOOD WITH BANDAIDE INTACT. NO C/O SOB OR DISTRESS THIS SHIFT. REMAINS ON TELEMETRY AT [facility] AT 72 WITH A 1ST DEGREE BLOCK AND A BBB. SHE GETS UP TO COMMODE WITH SBA. ABLE TO AMBULATE WITH SBA AND WALKER. RESTING IN BED AT THIS TIME WITH CALL LIGHT IN REACH
[2025-04-09 07:17] VITALS: BP 184/83
[2025-04-09 11:01] VITALS: BP 140/65
[2025-04-09] MEDS ORDERED: Trimethoprim/Sulfamethoxazole DS Tab PO ONE (14:30)
[2025-04-09] MEDS ORDERED: ALBU8HFA2 INH (15:08)
[2025-04-09] MEDS ORDERED: ELIQUIS5 M2 PO (15:09)
[2025-04-09] MEDS ORDERED: FURO20 PO (15:10)
[2025-04-09] MEDS ORDERED: METO25 PO (15:11)
[2025-04-09] MEDS ORDERED: OMEP20ER PO (15:12)
[2025-04-09] MEDS ORDERED: SULTRIDS PO (15:12)
--- NOTE | 2025-04-09 17:03 | NUR ---
Patient discharged home, Gilberto Altman. Discussed education/instructions with patient and daughter and all questions answered prior to leaving. Powerglide to JAMIA removed with tip intact and no s/s of swelling or issues noted or voiced. All belongings bagged and in patient possession at time of discharge. New prescriptions faxed to [facility] per patient preference. Patient transported via wheelchair to front entrance.
== END 2025-04-09 16:58 | disposition home health service (06) | DRG 208 ==
LOC: ER 23:25 → ICUE 04-05 01:40 → MEDS 04-08 11:41 → ENPENDDIS 04-09 14:15 → MEDS 04-09 16:58
PROVIDERS: Family Medicine; Internal Medicine Critical Care Medicine; Student in an Organized Health Care Education/Training Program; ADMIT Student in an Organized Health Care Education/Training Program
PROC: 5A1935Z Respiratory Ventilation, Less than 24 Consecutive Hours (ICD-10-PCS; principal; 2025-04-05)
PROC: 0BH17EZ Insertion of Endotracheal Airway into Trachea, Via Natural or Artificial Opening (ICD-10-PCS; 2025-04-05)
PROC: 0W9930Z Drainage of Right Pleural Cavity with Drainage Device, Percutaneous Approach (ICD-10-PCS; 2025-04-05)
PROC: 0DH67UZ Insertion of Feeding Device into Stomach, Via Natural or Artificial Opening (ICD-10-PCS; 2025-04-05)
PROC: 3E0G76Z Introduction of Nutritional Substance into Upper GI, Via Natural or Artificial Opening (ICD-10-PCS; 2025-04-05)
PROC: 4A033R1 Measurement of Arterial Saturation, Peripheral, Percutaneous Approach (ICD-10-PCS; 2025-04-05)
PROC: 3E033XZ Introduction of Vasopressor into Peripheral Vein, Percutaneous Approach (ICD-10-PCS; 2025-04-05)
PROC: 3E03329 Introduction of Other Anti-infective into Peripheral Vein, Percutaneous Approach (ICD-10-PCS; 2025-04-05)
PROC: 3E02340 Introduction of Influenza Vaccine into Muscle, Percutaneous Approach (ICD-10-PCS; 2025-04-05)
DX: J96.01 Acute respiratory failure with hypoxia (principal); A41.9 Sepsis, unspecified organism; J18.9 Pneumonia, unspecified organism; I26.99 Other pulmonary embolism without acute cor pulmonale; E87.20 Acidosis, unspecified; J44.0 Chronic obstructive pulmonary disease with (acute) lower respiratory infection; I24.89 Other forms of acute ischemic heart disease; J44.1 Chronic obstructive pulmonary disease with (acute) exacerbation; I47.10 Supraventricular tachycardia, unspecified; J93.83 Other pneumothorax; Z16.29 Resistance to other single specified antibiotic; Z16.11 Resistance to penicillins; Z66 Do not resuscitate; J96.02 Acute respiratory failure with hypercapnia; M19.90 Unspecified osteoarthritis, unspecified site; N18.30 Chronic kidney disease, stage 3 unspecified; G47.33 Obstructive sleep apnea (adult) (pediatric); K44.9 Diaphragmatic hernia without obstruction or gangrene; I12.9 Hypertensive chronic kidney disease with stage 1 through stage 4 chronic kidney disease, or unspecified chronic kidney disease; K21.9 Gastro-esophageal reflux disease without esophagitis; F32.A Depression, unspecified; E78.2 Mixed hyperlipidemia; B96.89 Other specified bacterial agents as the cause of diseases classified elsewhere; J43.9 Emphysema, unspecified; I27.20 Pulmonary hypertension, unspecified; Z96.642 Presence of left artificial hip joint; Z98.890 Other specified postprocedural states; Z79.891 Long term (current) use of opiate analgesic; Z87.19 Personal history of other diseases of the digestive system; Z87.39 Personal history of other diseases of the musculoskeletal system and connective tissue; Z79.899 Other long term (current) drug therapy; Z99.89 Dependence on other enabling machines and devices; Z79.01 Long term (current) use of anticoagulants; Z87.891 Personal history of nicotine dependence; Z88.8 Allergy status to other drugs, medicaments and biological substances; Z90.710 Acquired absence of both cervix and uterus; Z90.722 Acquired absence of ovaries, bilateral; Z86.73 Personal history of transient ischemic attack (TIA), and cerebral infarction without residual deficits; Z23 Encounter for immunization
CPT/HCPCS: 31500; 32551; 36415; 36600; 51702; 71045; 71260; 80048; 80053; 81001; 82330; 82803; 82947; 83605; 83735; 83880; 84100; 84145; 84484; 85025; 87040; 87070; 87077; 87186; 87205; 87428-QW; 93005; 93010; 93306; 94002; 94003; 94640; 94660; 94664; 94761; 94762; 96374-59; 96375-59; 97110; 97116; 97162; 97166; 97530; 97535; 99285-25; A9270; C1751; J0153; J0330; J0360; J0456; J0696; J1650; J2250; J2405; J2470; J2704; J3010; J7030; J7050; J7120; Q9967

== ENCOUNTER 2025-04-15 22:31 | Inpatient (IN) | payer MEDICARE ==
[~2025-04-15] VITALS: Ht 172.7 cm; Wt 75.4 kg
[~2025-04-15 22:31] MED LIST changes: +ALBU8HFA2 INH; +ASPI81CH PO; +Albuterol 2.5 MG/3 ML VIAL INH ONE; +ELIQUIS5 M2 PO; -Etomidate 2MG / ML 10ML Vial IV ONE; +FURO20 PO; +Ipratropium/Albuterol SulF 2.5-0.5MG/3 ML Amp INH ONE; -Midazolam HCl 1MG / ML 2ML Vial IV ONE; +OMEP20ER PO; +SULTRIDS PO; -SuccINYLCHOLINE Chloride 100 MG/5 ML 5MLSYR IV ONE
[2025-04-15] MEDS ORDERED: Albuterol 2.5 MG/3 ML VIAL ONE (22:44)
[2025-04-15] MEDS ORDERED: Ipratropium/Albuterol SulF 2.5-0.5MG/3 ML Amp ONE (22:44)
[2025-04-15 22:49] LABS: pH Blood Venous 7.29 (7.34-7.37)
[2025-04-15 22:53] LABS: BASOPHILS ABSOLUTE AUTO 0.07 K/mm3 (0.00-0.23); BASOPHILS PERCENT AUTO 1 % (0-2); EOSINOPHILS ABSOLUTE AUTO 0.15 K/mm3 (0.00-0.68); EOSINOPHILS PERCENT AUTO 2 % (0-6); Hematocrit 44.1 % (33.0-51.0); Hemoglobin 13.9 g/dL (11.5-16.0); IMMATURE GRAN ABSOLUTE AUTO 0.05 K/mm3 (0.00-0.10); IMMATURE GRAN PERCENT AUTO 1 % (0-1); LYMPHOCYTES ABSOLUTE AUTO 1.98 K/mm3 (0.84-5.20); LYMPHOCYTES PERCENT AUTO 24 % (21-46); MONOCYTES ABSOLUTE AUTO 0.82 K/mm3 (0.16-1.47); MONOCYTES PERCENT AUTO 10 % (4-13); Mean Corpuscular HGB Conc 31.5 g/dL (31.5-36.5); Mean Corpuscular Volume 91 fL (80-100); NEUTROPHILS ABSOLUTE AUTO 5.34 K/mm3 (1.96-9.15); NEUTROPHILS PERCENT AUTO 64 % (41-73); NRBC ABSOLUTE 0.00 K/mm3 (0.00-0.02); NRBC Auto 0.0 /100 WBC (0.0-0.2); Platelet Count 334 K/mm3 (150-400); RDW Coefficient Variation 13.4 % (11.7-14.2); RDW Standard Deviation 45.6 fL (35.1-46.3)
[2025-04-15 23:22] LABS: Alanine Aminotransfer (ALT/SGP 103.0 U/L (12-78); Albumin, Blood 3.9 g/dL (3.4-5.0); Albumin/Globulin Ratio 1.2 (0.8-1.8); Anion Gap 10.0 mmol/L (3-11); Aspartate Aminotrans (AST/SGOT 100.0 U/L (12-37); Bilirubin, Total 0.4 mg/dL (0.1-1.0); Blood Urea Nitrogen 49.0 mg/dL (8-24); CO2, Blood 24.0 mmol/L (21-32); Calcium, Blood 9.8 mg/dL (8.5-10.1); Chloride, Blood 110.0 mmol/L (98-108); Creatinine, Blood 1.76 mg/dL (0.40-1.00); Globulin, Blood 3.2 g/dL (2.2-4.0); Glucose, Blood 118.0 mg/dL (70-99); Magnesium, Blood 2.4 mg/dL (1.6-2.4); Potassium, Blood 5.4 mmol/L (3.5-5.5); Sodium, Blood 139.0 mmol/L (136-145); Total Protein, Blood 7.1 g/dL (6.4-8.2)
[2025-04-15] MEDS ORDERED: FentaNYL Citrate 50 MCG/ML 2 ML Injection ONE (23:33)
[2025-04-15] MEDS ORDERED: Doxycycline Hyclate 100 MG in Dextrose 5% 250 ML IV ONE (23:50)
[2025-04-15] MEDS ORDERED: CeFAZolin Sodium 2,000 MG in NS 100 ML IV ONE (23:50)
[2025-04-16] MEDS ORDERED: FentaNYL Citrate 50 MCG/ML 2 ML Injection IV ONE (00:10)
[2025-04-16] MEDS ORDERED: FentaNYL Citrate 50 MCG/ML 2 ML Injection IV SCH (00:10)
[2025-04-16] MEDS ORDERED: Morphine Sulfate 4 MG/1 ML Injection IV ONE ×2 (00:20→01:40)
[2025-04-16] MEDS ORDERED: FentaNYL Citrate 50 MCG/ML 2 ML Injection IV PRN (00:20)
[2025-04-16] MEDS ORDERED: Ondansetron HCl 2 MG / ML 2ML Vial IV PRN (00:25)
[2025-04-16] MEDS ORDERED: FLU VACC TS2025(65UP)/MF59C/PF 45 MCG/0.5 ML SYRINGE IM ONE (00:25)
[2025-04-16] MEDS ORDERED: Ipratropium/Albuterol SulF 2.5-0.5MG/3 ML Amp INH PRN (00:25)
[2025-04-16] MEDS ORDERED: NS 1,000 ML IV ONE (01:35)
[2025-04-16] MEDS ORDERED: HYDROmorphone HCl/Pf 1MG SYR IV ONE (02:00)
[2025-04-16 02:34] LABS: Influenza A, PCR NEGATIVE (NEGATIVE); Influenza B, PCR NEGATIVE (NEGATIVE); Resp Syncytial Virus, PCR NEGATIVE (NEGATIVE); SARS-Cov-2 (COVID-19) PCR, MMC NEGATIVE (NEGATIVE)
[2025-04-16 03:53] LABS: BASOPHILS ABSOLUTE AUTO 0.05 K/mm3 (0.00-0.23); BASOPHILS PERCENT AUTO 1 % (0-2); EOSINOPHILS ABSOLUTE AUTO 0.01 K/mm3 (0.00-0.68); EOSINOPHILS PERCENT AUTO 0 % (0-6); Hematocrit 40.2 % (33.0-51.0); Hemoglobin 12.6 g/dL (11.5-16.0); IMMATURE GRAN ABSOLUTE AUTO 0.03 K/mm3 (0.00-0.10); IMMATURE GRAN PERCENT AUTO 0 % (0-1); LYMPHOCYTES ABSOLUTE AUTO 0.53 K/mm3 (0.84-5.20); LYMPHOCYTES PERCENT AUTO 6 % (21-46); MONOCYTES ABSOLUTE AUTO 0.25 K/mm3 (0.16-1.47); MONOCYTES PERCENT AUTO 3 % (4-13); Mean Corpuscular HGB Conc 31.3 g/dL (31.5-36.5); Mean Corpuscular Volume 92 fL (80-100); NEUTROPHILS ABSOLUTE AUTO 7.51 K/mm3 (1.96-9.15); NEUTROPHILS PERCENT AUTO 90 % (41-73); NRBC ABSOLUTE 0.00 K/mm3 (0.00-0.02); NRBC Auto 0.0 /100 WBC (0.0-0.2); Platelet Count 287 K/mm3 (150-400); RDW Coefficient Variation 13.5 % (11.7-14.2); RDW Standard Deviation 46.1 fL (35.1-46.3)
--- NOTE | 2025-04-16 04:55 | NUR ---
PT ARRIVED TO PCU 11 FROM ER. PT AXOX4 AND ABLE TO USE CALL LIGHT APPROPRIATELY. ON BIPAP AT 65% TO KEEP O2>92%. RIGHT CT IN PLACE AND HOOKED TO -20 SUCTION. NO AIR LEAK NOTED. PT COMPLAINS OF PAIN AT CT SITE. PRN PAIN MEDS GIVEN WHEN REQUESTED. PUREWICK IN PLACE. PT TACHYCARDIC 100-115. ALL OTHER VSS. BED IN LOWEST POSITION AND CALL LIGHT WITHIN REACH.
[2025-04-16 04:58] LABS: Alanine Aminotransfer (ALT/SGP 143.0 U/L (12-78); Albumin, Blood 3.6 g/dL (3.4-5.0); Albumin/Globulin Ratio 1.2 (0.8-1.8); Anion Gap 10.0 mmol/L (3-11); Aspartate Aminotrans (AST/SGOT 109.0 U/L (12-37); Bilirubin, Total 0.2 mg/dL (0.1-1.0); Blood Urea Nitrogen 49.0 mg/dL (8-24); CO2, Blood 22.0 mmol/L (21-32); Calcium, Blood 9.2 mg/dL (8.5-10.1); Chloride, Blood 110.0 mmol/L (98-108); Creatinine, Blood 1.79 mg/dL (0.40-1.00); Globulin, Blood 3.0 g/dL (2.2-4.0); Glucose, Blood 161.0 mg/dL (70-99); Potassium, Blood 5.3 mmol/L (3.5-5.5); Sodium, Blood 137.0 mmol/L (136-145); Total Protein, Blood 6.6 g/dL (6.4-8.2)
[2025-04-16] MEDS ORDERED: Albuterol HFA200 ACT/6.7 GM INH INH PRN (06:25)
[2025-04-16 08:48] VITALS: BP 139/91
[2025-04-16 15:04] VITALS: BP 122/84
--- NOTE | 2025-04-16 17:56 | NUR ---
SHIFT SUMMARY PATIENT HAS BEEN AWAKE AND AO X 4 T/O SHIFT. VITALS SIGNS HAVE BEEN STABLE. SBP 110-140, MAP >65. HR 100-120 AND SINUS. O2 SATS >90 ON 7L NC. CHEST TUBE AT -20 PRESSURE WITH 40ML SEROSANGUINOUS DRAINAGE OUT. NO CREPITUS OR AIR LEAKAGE OBSERVED. DIET ORDERS CHANGED PER PROVIDER IN CHART. TOLERATES ORAL NURTRITION WELL, PATIENT DENIES CHEST PAIN/PRESSURE/SOB AT THIS TIME. PUREWICK IN PLACE CONNECTED TO SUCTION. WITH LIGHT OUTPUT. BLADDER SCAN SHOWED 450ML. PATIENT HAS CONTINUED LIGHT URINATION. PROVIDER AWARE. IV FLUIDS HAVE COMPLETED. REPOSITIONING T/O SHIFT. PATIENT RESTING COMFORTABLY IN BED IN LOWEST POSITION WITH CALL LIGHT IN REACH. CHEST TUBE UNIT IS SECURELY ATTACHED TO FLOOR IN UPRIGHT POSITION.
[2025-04-16 19:41] VITALS: BP 125/79
[2025-04-16 23:23] VITALS: BP 137/90
[2025-04-17 03:05] VITALS: BP 145/88
--- NOTE | 2025-04-17 06:23 | NUR ---
SHIFT SUMMARY PT A&O X4, CALM, COOPERATIVE TO CARE. HR IN THE 80'S-100'S. SHE DENIES ANY CP/PRESSURE, NUMB/TINGLING, SBP STABLE. PT ON 5L VIA NC AT THIS TIME, SpO2 >92%. PT HAS CPAP AT BEDSIDE, PT PLACED ON CPAP BEFORE BED BUT ONLY WORE FOR APPROX 2 HOURS AND WANTED TO GO BACK TO THE NC. SHE DENIED ANY SOB. PT HAS CHEST TUBE IN RIGHT UPPER CHEST, DRAINING SEROSANGUINEOUS FLUID. IMAGINING AT BEDSIDE THIS AM, CHEST XR COMPLETED. PT HAS PUREWICK IN PLACE. SHE DENIES ANY QUESTIONS/CONCERNS AT THIS TIME. CALL LIGHT IN REACH. WILL MONITOR PT AND REPORT TO ONCOMING RN.
[2025-04-17 07:48] VITALS: BP 170/91
[2025-04-17 08:06] LABS: BASOPHILS ABSOLUTE AUTO 0.03 K/mm3 (0.00-0.23); BASOPHILS PERCENT AUTO 0 % (0-2); EOSINOPHILS ABSOLUTE AUTO 0.01 K/mm3 (0.00-0.68); EOSINOPHILS PERCENT AUTO 0 % (0-6); Hematocrit 39.1 % (33.0-51.0); Hemoglobin 12.4 g/dL (11.5-16.0); IMMATURE GRAN ABSOLUTE AUTO 0.03 K/mm3 (0.00-0.10); IMMATURE GRAN PERCENT AUTO 0 % (0-1); LYMPHOCYTES ABSOLUTE AUTO 1.13 K/mm3 (0.84-5.20); LYMPHOCYTES PERCENT AUTO 12 % (21-46); MONOCYTES ABSOLUTE AUTO 0.69 K/mm3 (0.16-1.47); MONOCYTES PERCENT AUTO 7 % (4-13); Mean Corpuscular HGB Conc 31.7 g/dL (31.5-36.5); Mean Corpuscular Volume 91 fL (80-100); NEUTROPHILS ABSOLUTE AUTO 7.85 K/mm3 (1.96-9.15); NEUTROPHILS PERCENT AUTO 81 % (41-73); NRBC ABSOLUTE 0.00 K/mm3 (0.00-0.02); NRBC Auto 0.0 /100 WBC (0.0-0.2); Platelet Count 258 K/mm3 (150-400); RDW Coefficient Variation 13.3 % (11.7-14.2); RDW Standard Deviation 45.0 fL (35.1-46.3)
[2025-04-17 08:28] LABS: Anion Gap 7.0 mmol/L (3-11); Blood Urea Nitrogen 43.0 mg/dL (8-24); CO2, Blood 25.0 mmol/L (21-32); Calcium, Blood 9.3 mg/dL (8.5-10.1); Chloride, Blood 111.0 mmol/L (98-108); Creatinine, Blood 1.32 mg/dL (0.40-1.00); Glucose, Blood 101.0 mg/dL (70-99); Potassium, Blood 5.3 mmol/L (3.5-5.5); Sodium, Blood 138.0 mmol/L (136-145)
--- NOTE | 2025-04-17 08:30 | NUR ---
AM NOTES; TELE CALLED THIS RN FOR A RHYTHM CHANGE POSSIBLE AFIB/AFLUTTER EKG WAS ORDERED AND DONE SHOWS AFIB. THIS RN LET DR BAEZ KNOW UPON ROUNDING. ALSO ORDERED TO PUT CHEST TUBE ON WATER SEAL. VITALS HRR AFIB 80-90'S. SBP 170'S, SATS ABOVE 90% ON 5L OF O2 AFEBRILE. NO COMPLAINTS THIS MORNING. PT ABLE TO MAKE NEEDS KNOWN WILL CONTINUE TO MONITOR
[2025-04-17 11:13] VITALS: BP 149/81
[2025-04-17 15:18] VITALS: BP 129/94
--- NOTE | 2025-04-17 15:35 | NUR ---
PT SUMMARY; SEE PREVIOUS NOTE. NO ACUTE CHANGE FOR THE SHIFT. CHEST TUBE REMAINED ON WATER SEAL CXR LOOKS GOOD PER DR ROBISON TO REPEAT CXR AND IN AM AT 0500 AND REAASESS FOR POSSIBLE CHEST TUBE REMOVAL. NO OTHER ISSUES REPORTED. VITALS HAS BEEN STABLE. PT WAS UP IN THE RECLINER FOR LUNCH 1PA FOR TRANSFERS VIA WALKER. PUREWICK REMAINED IN PLACE. DAUGHTER WAS IN ABLE TO BRING IN HOME CPAP MASK. ALSO MADE AWARE OF PLAN OF CARE. WILL REPORT TO ONCOMING SHIFT
[2025-04-17 19:32] VITALS: BP 129/89
[2025-04-17 23:30] VITALS: BP 155/99
[2025-04-18 04:03] VITALS: BP 160/96
--- NOTE | 2025-04-18 06:20 | NUR ---
NO ACUTE EVENTS OVERNIGHT. PT REFUSED CPAP D/T IT NOT OPERATING LIKE HOME CPAP. PT REMAINED ON NASAL CANNULA THROUGHOUT NIGHT. NO COMPLAINTS OF SOB OR CREPITUS AT CHEST TUBE SITE. PURWICK IN PLACE. PT CALLED APPROPRIATELY. BED LOCKED IN LOWEST POSITION. BED ALARM ON. CALL LIGHT WITHIN REACH.
[2025-04-18 07:09] LABS: BASOPHILS ABSOLUTE AUTO 0.01 K/mm3 (0.00-0.23); BASOPHILS PERCENT AUTO 0 % (0-2); EOSINOPHILS ABSOLUTE AUTO 0.00 K/mm3 (0.00-0.68); EOSINOPHILS PERCENT AUTO 0 % (0-6); Hematocrit 41.6 % (33.0-51.0); Hemoglobin 13.5 g/dL (11.5-16.0); IMMATURE GRAN ABSOLUTE AUTO 0.03 K/mm3 (0.00-0.10); IMMATURE GRAN PERCENT AUTO 0 % (0-1); LYMPHOCYTES ABSOLUTE AUTO 0.90 K/mm3 (0.84-5.20); LYMPHOCYTES PERCENT AUTO 9 % (21-46); MONOCYTES ABSOLUTE AUTO 0.34 K/mm3 (0.16-1.47); MONOCYTES PERCENT AUTO 4 % (4-13); Mean Corpuscular HGB Conc 32.5 g/dL (31.5-36.5); Mean Corpuscular Volume 91 fL (80-100); NEUTROPHILS ABSOLUTE AUTO 8.46 K/mm3 (1.96-9.15); NEUTROPHILS PERCENT AUTO 87 % (41-73); NRBC ABSOLUTE 0.00 K/mm3 (0.00-0.02); NRBC Auto 0.0 /100 WBC (0.0-0.2); Platelet Count 279 K/mm3 (150-400); RDW Coefficient Variation 13.2 % (11.7-14.2); RDW Standard Deviation 43.6 fL (35.1-46.3)
[2025-04-18 07:25] LABS: Anion Gap 8.0 mmol/L (3-11); Blood Urea Nitrogen 45.0 mg/dL (8-24); CO2, Blood 24.0 mmol/L (21-32); Calcium, Blood 9.3 mg/dL (8.5-10.1); Chloride, Blood 109.0 mmol/L (98-108); Creatinine, Blood 1.16 mg/dL (0.40-1.00); Glucose, Blood 127.0 mg/dL (70-99); Potassium, Blood 5.1 mmol/L (3.5-5.5); Sodium, Blood 136.0 mmol/L (136-145)
[2025-04-18 07:37] VITALS: BP 155/98
[2025-04-18] MEDS ORDERED: HYDROcodone 5-APAP 325 TAB PO PRN (10:10)
[2025-04-18 11:08] VITALS: BP 134/83
[2025-04-18 15:47] VITALS: BP 132/77
--- NOTE | 2025-04-18 17:45 | NUR ---
PT SUMMARY; NO ACUTE CHANGE FOR THE SHIFT. DR PINEDA SAW PT THIS MORNING CHEST TUBE WAS CLAMPED CXR REPEATED COUPLE HRS LATER, WITH NO CHANGES. TO REPEAT CXR IN AM, AND POSSIBLE CHEST TUBE REMOVAL TOMORROW IF NO CHANGES ON CXR IN AM. VITALS HAS BEEN STABLE. DENIES RESPIRATORY ISSUES FOR THE SHIFT PT REMAINS ON 4L OF O2 VIA NASAL CANNULA. DAUGHTER CAME IN TO VISIT AWARE OF THE PLAN OF CARE. PT HAS BEEN UP IN THE RECLINER FOR MEALS. PT REPOSITONED Q2HRS FOR COMFORT. NO OTHER ISSUES ENCOUNTERED WILL REPORT TO ONCOMING SHIFT
[2025-04-18 19:35] VITALS: BP 123/85
--- NOTE | 2025-04-18 21:08 | NUR ---
ASSUMPTION OF CARE THIS RN ASSUMED CARE OF PATIENT AT 1900. PT A&O X4. ABLE TO MAKE NEEDS KNOWN. MOVING SELF IN BED WELL. REPORTING PAIN WITH MOVEMENT D/T CHEST TUBE TO UPPER RT CHEST WALL. CHEST TUBE CLAMPED AT THIS TIME PER MD ORDER. REPEAT CXR ORDERED FOR 0500. PT DENIES CHEST PAIN/PRESSURE AND SOB AT THIS TIME. CONTINUES TO BE ON 4L VIA NC TO MAINTAIN SPO2 >92%. AFIB/FLUTTER ON MONITOR WITH HR 80-90'S. BP STABLE. AFEBRILE. PUREWICK IN PLACE. TAKING PO WELL. BED IN LOWEST POSITION AND CALL LIGHT WITHIN REACH.
[2025-04-18 23:55] VITALS: BP 122/87
[2025-04-19 03:27] VITALS: BP 129/88
--- NOTE | 2025-04-19 04:47 | NUR ---
SEE PREVIOUS NOTE. NO ACUTE CHANGES DURING THIS SHIFT. RESPIRATORY STATUS REMAINS UNCHANGED. CHEST TUBE REMAINS CLAMPED. PT DENIES SOB OR CHEST PAIN. ON 4L VIA NC. VSS. PUREWICK IN PLACE DRAINING YELLOW URINE. ASSISTING WITH REPOSITIONING PRN. PT ABLE TO REPOSITION SELF ONTO SIDE. BED IN LOWEST POSITION AND CALL LIGHT WITHIN REACH. THIS RN WILL REPORT TO ONCOMING DAYSHIFT RN.
[2025-04-19 07:06] VITALS: BP 140/88
[2025-04-19 08:10] LABS: BASOPHILS ABSOLUTE AUTO 0.04 K/mm3 (0.00-0.23); BASOPHILS PERCENT AUTO 1 % (0-2); EOSINOPHILS ABSOLUTE AUTO 0.20 K/mm3 (0.00-0.68); EOSINOPHILS PERCENT AUTO 2 % (0-6); Hematocrit 43.7 % (33.0-51.0); Hemoglobin 14.3 g/dL (11.5-16.0); IMMATURE GRAN ABSOLUTE AUTO 0.04 K/mm3 (0.00-0.10); IMMATURE GRAN PERCENT AUTO 1 % (0-1); LYMPHOCYTES ABSOLUTE AUTO 1.60 K/mm3 (0.84-5.20); LYMPHOCYTES PERCENT AUTO 18 % (21-46); MONOCYTES ABSOLUTE AUTO 0.75 K/mm3 (0.16-1.47); MONOCYTES PERCENT AUTO 9 % (4-13); Mean Corpuscular HGB Conc 32.7 g/dL (31.5-36.5); Mean Corpuscular Volume 89 fL (80-100); NEUTROPHILS ABSOLUTE AUTO 6.22 K/mm3 (1.96-9.15); NEUTROPHILS PERCENT AUTO 70 % (41-73); NRBC ABSOLUTE 0.00 K/mm3 (0.00-0.02); NRBC Auto 0.0 /100 WBC (0.0-0.2); Platelet Count 287 K/mm3 (150-400); RDW Coefficient Variation 13.2 % (11.7-14.2); RDW Standard Deviation 43.3 fL (35.1-46.3)
[2025-04-19 08:27] LABS: Anion Gap 8.0 mmol/L (3-11); Blood Urea Nitrogen 43.0 mg/dL (8-24); CO2, Blood 26.0 mmol/L (21-32); Calcium, Blood 9.2 mg/dL (8.5-10.1); Chloride, Blood 107.0 mmol/L (98-108); Creatinine, Blood 1.05 mg/dL (0.40-1.00); Glucose, Blood 98.0 mg/dL (70-99); Potassium, Blood 4.7 mmol/L (3.5-5.5); Sodium, Blood 136.0 mmol/L (136-145)
--- NOTE | 2025-04-19 08:32 | NUR ---
UPDATE: DR PINEDA AT BEDSIDE THIS AM, REMOVED CHEST TUBE. DRESSING IN PLACE, PETROLIUM GAUZE AND DRY GUAZE OVER SITE. REPEAT CHEST XRAY IN ONE HOUR. PULMONOLOGY SIGNED OFF, CLEARED PT TO D/C TODAY IF CHEST XRAY IS STABLE. PT REMAINS ON 4L O2, DENIES SOB. WILL TITRATE TO HOME O2, 2L. WILL CONTINUE TO MONITOR AT THIS TIME.
[2025-04-19 11:22] VITALS: BP 115/72
--- NOTE | 2025-04-19 14:00 | NUR ---
DISCHARGE: PT D/C VIA W/C WITH DAUGHTER AT APPROX 1345. VITAL SIGNS STABLE, CHEST TUBE REMOVAL DRESSING C/D/I. DISCHARGE INSTRUCTIONS GIVEN, ALL BELONGINGS WITH PATIENT.
== END 2025-04-19 14:00 | disposition home or self-care (01) | DRG 199 ==
LOC: ER 22:31 → PCU 04-16 → ERHOLD 04-16 → PCU 04-16 03:12
PROVIDERS: Student in an Organized Health Care Education/Training Program; ADMIT Internal Medicine
PROC: 0W9930Z Drainage of Right Pleural Cavity with Drainage Device, Percutaneous Approach (ICD-10-PCS; principal; 2025-04-15)
PROC: 3E03329 Introduction of Other Anti-infective into Peripheral Vein, Percutaneous Approach (ICD-10-PCS; 2025-04-16)
PROC: 5A09457 Assistance with Respiratory Ventilation, 24-96 Consecutive Hours, Continuous Positive Airway Pressure (ICD-10-PCS; 2025-04-16)
DX: J93.9 Pneumothorax, unspecified (principal); I26.93 Single subsegmental thrombotic pulmonary embolism without acute cor pulmonale; J96.02 Acute respiratory failure with hypercapnia; J96.21 Acute and chronic respiratory failure with hypoxia; E87.29 Other acidosis; J44.1 Chronic obstructive pulmonary disease with (acute) exacerbation; N17.9 Acute kidney failure, unspecified; K57.92 Diverticulitis of intestine, part unspecified, without perforation or abscess without bleeding; I50.32 Chronic diastolic (congestive) heart failure; I13.0 Hypertensive heart and chronic kidney disease with heart failure and stage 1 through stage 4 chronic kidney disease, or unspecified chronic kidney disease; I48.92 Unspecified atrial flutter; I48.91 Unspecified atrial fibrillation; F32.9 Major depressive disorder, single episode, unspecified; F41.1 Generalized anxiety disorder; G25.81 Restless legs syndrome; E78.2 Mixed hyperlipidemia; K21.9 Gastro-esophageal reflux disease without esophagitis; N18.30 Chronic kidney disease, stage 3 unspecified; M19.90 Unspecified osteoarthritis, unspecified site; J43.9 Emphysema, unspecified; G47.33 Obstructive sleep apnea (adult) (pediatric); Z86.718 Personal history of other venous thrombosis and embolism; Z82.49 Family history of ischemic heart disease and other diseases of the circulatory system; Z99.81 Dependence on supplemental oxygen; Z87.891 Personal history of nicotine dependence; Z96.641 Presence of right artificial hip joint; Z98.890 Other specified postprocedural states; Z88.8 Allergy status to other drugs, medicaments and biological substances; Z79.01 Long term (current) use of anticoagulants; Z79.899 Other long term (current) drug therapy
CPT/HCPCS: 32551; 36415; 71045; 80048; 80053; 82803; 83735; 83880; 85025; 87637; 93005; 93010; 94644; 94660; 94664; 94762; 99285-25; A9270; J0456; J0690; J1171; J2270; J2919; J3010; J7030; J7050; J7060